=== PATIENT | female | born 1960 | race Caucasian/White ===

== ENCOUNTER 2022-04-03 03:29 | Emergency (ER) | payer BC ==
[~2022-04-03] VITALS: Ht 167.6 cm; Wt 88.5 kg
--- NOTE | 2022-04-03 03:45 | NUR ---
PLACED IN BED-1,C/O CHEST PAIN ANTERIOR AND NUMBNESS ON LT ARM P/S 08/28, HAD HISTERECTOMY 2 MOS AGO.,CONNECTED TO BEDSIDE MONITOR,VSS,PLACED TON BED TO GOWN, EKG DONE
--- NOTE | 2022-04-03 03:50 | NUR ---
DR BOYLE IN THE ROOM EXAMINING PATIENT.
[2022-04-03 03:55] VITALS: BP_SYST 153
[2022-04-03] MEDS ORDERED: ASPIRIN 81 MG TAB.CHEW PO ONE (04:00)
--- NOTE | 2022-04-03 04:10 | NUR ---
MEDICATED FOR ASPIRIN 2 TAB ORDERED SEE EMAR.
[2022-04-03 04:32] LABS: HEMOGLOBIN 13.5 g/dL (12.0-16.0)
[2022-04-03 04:49] LABS: BASOPHILS % (AUTO) 0.2 % (0.0-2.0); EOSINOPHILS # (AUTO) 0.1 K/uL (0.0-0.4); EOSINOPHILS % (AUTO) 1.1 % (0.0-4.0); HEMATOCRIT 39.1 % (36-48); LYMPHOCYTES # (AUTO) 1.5 K/uL (1.0-5.5); LYMPHOCYTES % (AUTO) 15.7 % (20.5-51.5); MEAN CORPUSCULAR HEMOGLOBIN 31 pg (27-31); MEAN CORPUSCULAR HGB CONC 35 % (32-36); MEAN CORPUSCULAR VOLUME 88 fL (79.0-98.0); MONOCYTES # (AUTO) 0.4 K/uL (0.0-1.0); MONOCYTES % (AUTO) 4.4 % (1.7-9.3); NEUTROPHILS # (AUTO) 7.5 K/uL (1.8-7.7); NEUTROPHILS % (AUTO) 78.6 % (40.0-70.0); PLATELET COUNT (AUTO) 142 K/uL (130-430); RED BLOOD CELL COUNT(AUTO) 4.44 MIL/uL (4.2-6.2); RED CELL DISTRIBUTION WIDTH 13.7 % (9.0-15.0); WHITE BLOOD COUNT (AUTO) 9.5 K/uL (4.8-10.8)
[2022-04-03 05:44] LABS: ANION GAP 8 (5-15); CALCIUM 8.6 mg/dL (8.4-11.0); CHLORIDE 106 mmol/L (98-107); CREATININE 0.92 mg/dL (0.55-1.30); GLUCOSE 104 mg/dL (70-99); UREA NITROGEN, BLOOD 21 mg/dL (8-21)
[2022-04-03 05:51] LABS: ALANINE AMINOTRANSFERASE 11 U/L (12-78); ALBUMIN 3.6 g/dL (3.4-4.8); ASPARTATE AMINOTRANSFERASE 13 U/L (10-37); TOTAL BILIRUBIN 0.4 mg/dL (0.0-1.0)
[2022-04-03 05:56] LABS: GFR AFRICAN AMERICAN 80 mL/min (>90)
[2022-04-03] MEDS ORDERED: ASPI-862 PO (06:50)
--- NOTE | 2022-04-03 07:06 | NUR ---
REPORT TO ANGELITO KLINE FOR CONT OF CARE
--- NOTE | 2022-04-03 07:24 | NUR ---
RECEIVED PT FROM RAISA RENE. PT IS BIB FOR C/P. PT DENIES C/P AT THIS TIME. RESP E/U. ON R/A. DENIES N/V/D/C. SKIN WARM, CDI, NO EDEMA. PT HAS NO IV ACCESS WHEN ENDORSED. AT BEDSIDE. SIDERAILS UP X2.
[2022-04-03 08:45] VITALS: BP_SYST 149
--- NOTE | 2022-04-03 08:47 | NUR ---
Patient given written and verbal discharge instructions and verbalizes understanding. ER MD discussed with patient the results and treatment provided. Patient in stable condition. ID arm band removed. Rx of ASPRIN given. Patient educated on pain management and to follow up with PMD. Pain Scale 0/10. Opportunity for questions provided and answered. Medication side effect fact sheet provided.
== END 2022-04-03 08:45 | disposition home or self-care (01) ==
LOC: SED 03:29
DX: R07.89 Other chest pain (principal); R20.2 Paresthesia of skin; Z79.899 Other long term (current) drug therapy
CPT/HCPCS: 36415; 71045; 80053; 83880; 84484; 85025; 85379; 93005; 99285